=== PATIENT | female | born 1955 | race Caucasian/White ===

== ENCOUNTER 2017-11-27 12:34 | Emergency (ER) | payer MEDICARE ==
[~2017-11-27] VITALS: Ht 165.1 cm; Wt 68.6 kg
[~2017-11-27 12:34] MED LIST: AVELOX400 MG PO; COMBIVENT IN; EFFEXOR XR37.5 MG PO; LEVAQUIN 500 M500 MG PO
[2017-11-27 15:56] VITALS: BP 110/70
== END 2017-11-27 15:56 | disposition short-term general hospital (02) ==
LOC: M.ERS 12:34
DX: S32.029A Unspecified fracture of second lumbar vertebra, initial encounter for closed fracture (principal); W19.XXXA Unspecified fall, initial encounter; Y93.89 Activity, other specified; Y92.89 Other specified places as the place of occurrence of the external cause; Y99.8 Other external cause status